=== PATIENT | male | born 1970 | race Asian ===

== ENCOUNTER 2017-11-19 20:08 | Emergency (ER) | payer OTHER ==
[~2017-11-19] VITALS: Ht 165.1 cm; Wt 63.5 kg
[~2017-11-19 20:08] MED LIST: AMO500 PO; BIA500 PO; CAR1 PO; COL100 PO; FER300 PO; PROTONIX40 MG PO; VITAMIN C500 M4 PO; [UNRECOGNIZED DRUG - REMARK]
[2017-11-19 20:12] VITALS: Ht 165.1 cm; Wt 63.5 kg
[2017-11-19 23:30] VITALS: BP 110/76
== END 2017-11-19 23:30 | disposition home or self-care (01) ==
LOC: ED 20:08
DX: S16.1XXA Strain of muscle, fascia and tendon at neck level, initial encounter (principal); V89.2XXA Person injured in unspecified motor-vehicle accident, traffic, initial encounter; Y93.89 Activity, other specified; Y92.89 Other specified places as the place of occurrence of the external cause; Y99.8 Other external cause status
CPT/HCPCS: J1885

== ENCOUNTER 2019-01-04 17:00 | Emergency (ER) | payer OTHER ==
[~2019-01-04] VITALS: Ht 167.6 cm; Wt 61.7 kg
[2019-01-04 17:16] VITALS: Ht 167.6 cm; Wt 61.7 kg
[2019-01-04 20:45] LABS: BASOPHIL % 0.4 % (0-2); PLATELET COUNT 235 x10^3mcL (130-400)
[2019-01-04 20:57] LABS: CALCIUM 8.8 mg/dL (8.5-10.1); CARBON DIOXIDE 28.6 mmol/L (21-32); CHLORIDE SERUM 104 mmol/L (98-107); CREATININE SERUM 1.1 mg/dL (0.7-1.3); GFR1 > 60 mL/min; GLUCOSE SERUM 130 mg/dL (74-106); POTASSIUM SERUM 3.8 mmol/L (3.5-5.1); SODIUM SERUM 139 mmol/L (136-145)
[2019-01-04 21:01] LABS: ALBUMIN 3.8 g/dL (3.4-5.0); ALKALINE PHOSPHATASE 42 U/L (46-116); ALT/SGPT 28 U/L (16-63); AST/SGOT 19 U/L (15-37); BILIRUBIN TOTAL 0.5 mg/dL (0.20-1.00); TOTAL PROTEIN, SERUM 7.5 g/dL (6.4-8.2)
[2019-01-04 21:21] VITALS: BP 128/74
== END 2019-01-04 21:21 | disposition home or self-care (01) ==
LOC: ED 17:00
PROVIDERS: Emergency Medicine
DX: R00.2 Palpitations (principal); R07.89 Other chest pain; R53.83 Other fatigue
CPT/HCPCS: 36415; 83880